=== PATIENT | female | born 1995 | race Caucasian/White ===

== ENCOUNTER 2021-12-29 07:47 | Inpatient (IN) ==
[2021-12-29] MEDS ORDERED: Buffered Lidocaine 1% SYRIN 1 ml INTRADERM ONE (12:16)
[2021-12-29] MEDS ORDERED: Lactated Ringers 1000 ml BAG 1,000 ML IV ONE (12:16)
[2021-12-29] MEDS ORDERED: Lactated Ringers 1000 ml BAG 1,000 ML IV SCH (13:00)
[2021-12-29 20:04] LABS: Rapid COVID-19 Molecular Undetected (Undetected)
[2021-12-29] MEDS ORDERED: Promethazine INJ(RESTRICTED) 25 MG/ML 1 ml VIAL IM ONE (21:37)
[2021-12-29] MEDS ORDERED: Nalbuphine 10 MG/ML 1 ML VIAL IM ONE (21:37)
[2021-12-30 01:49] LABS: Urine Benzodiazepine Screen None Detected (None Detect); Urine Cannabinoids Screen None Detected (None Detect); Urine Opiates Screen None Detected (None Detect)
[2021-12-30] MEDS ORDERED: Oxytocin in LR 20 UNITS/1,000 ML BAG IVPB ONE (12:39)
[2021-12-30 13:00] LABS: ABS Lymphocytes 1.2 10^3/ul (1.0-4.8); ABS Monocytes 0.8 10^3/ul (0-0.8); ABS Neutrophils 7.6 10^3/ul (1.5-7.7); Eosinophil % 0.2 %; Hematocrit 39 % (35-47); Hemoglobin 13.3 g/dL (12.0-16.0); Lymphocyte % 12.3 %; Mean Corpuscular HGB Conc 34 g/dL (31-36); Mean Corpuscular Hemoglobin 31 pg (27-31); Mean Corpuscular Volume 91 fL (80-97); Nucleated Red Blood Cells % 0.1; Red Blood Count 4.28 10^6 /uL (3.70-4.87); Red Cell Distribution Width 14 % (10-15); White Blood Count 9.6 10^3/uL (3.5-10.8)
[2021-12-30] MEDS ORDERED: Oxytocin in LR 20 UNITS/1,000 ML BAG IVPB SCH ×2 (13:00→22:00)
[2021-12-30 13:36] LABS: Giant Platelets Present; Platelet Count Platelets clumped. 10^3/uL (150-450)
[2021-12-30 15:02] LABS: Platelet Count, Citrated 136 10^3/ul (150-450)
[2021-12-30] MEDS ORDERED: OBEPIDURAL 250 ML EPIDURAL ONE (16:38)
[2021-12-30] MEDS ORDERED: Lactated Ringers 1000 ml BAG 1,000 ML IV ONE (19:26)
[2021-12-30] MEDS ORDERED: Sodium Citrate/Citric Acid LIQ 15 ML UDC PO PRN (19:26)
[2021-12-30] MEDS ORDERED: Phenylephrine 40 mcg/mL 10mL (400mcg) SYRINGE IV PUSH PRN ×2 (19:26)
[2021-12-30] MEDS ORDERED: EPHEDrine (Pressors) 50 MG/ML VIAL IV PUSH PRN ×2 (19:26)
[2021-12-30] MEDS ORDERED: OBEPIDURAL 250 ML EPIDURAL SCH (20:00)
[2021-12-30] MEDS ORDERED: Lactated Ringers 1000 ml BAG 1,000 ML IV SCH ×2 (20:00→22:00)
[2021-12-30 21:28] LABS: Urine Appearance Clear; Urine Bilirubin Negative (Negative); Urine Blood Negative (Negative); Urine Color Yellow; Urine Glucose Negative (Negative); Urine Ketones 1+ (Negative); Urine Nitrite Negative (Negative); Urine Protein Negative (Negative); Urine Specific Gravity 1.012 (1.002-1.030); Urine Urobilinogen Negative (Negative)
[2021-12-30] MEDS ORDERED: RHO D Immune Globulin (HUMAN) 300 MCG = 1,500 I.U. INJ IM PRN (21:54)
[2021-12-30] MEDS ORDERED: Witch Hazel PAD JAR TOPICAL PRN (21:54)
[2021-12-30] MEDS ORDERED: Dibucaine 1% OINT 28.35 GM TUBE PR PRN (21:54)
[2021-12-30] MEDS ORDERED: Ammonia Inhalant 1 EA AMP ONE (23:19)
[2021-12-31] MEDS ORDERED: Lidocaine 1% VIAL 10 MG/ML VIAL ONE (03:02)
[2021-12-31 07:33] LABS: Hematocrit 35 % (35-47); Mean Corpuscular HGB Conc 34 g/dL (31-36); Mean Corpuscular Hemoglobin 32 pg (27-31); Mean Corpuscular Volume 92 fL (80-97); Red Blood Count 3.79 10^6 /uL (3.70-4.87); Red Cell Distribution Width 14 % (10-15)
[2021-12-31 07:57] LABS: ABS Lymphocytes 1.2 10^3/ul (1.0-4.8); ABS Neutrophils 7.7 10^3/ul (1.5-7.7); Eosinophil % 0.4 %; Lymphocyte % 12.3 %; Platelet Count Platelets clumped. 10^3/uL (150-450)
[2022-01-01 07:35] VITALS: BP 98/51
== END 2022-01-01 15:30 | disposition home or self-care (01) | DRG 560 ==
LOC: MCHOBOUT 07:47 → MCHOB 09:53
PROVIDERS: ADMIT Midwife; ATTEND Midwife